=== PATIENT | male | born 1975 | race African-American/Black ===

== ENCOUNTER 2021-10-22 00:06 | Emergency (ER) | payer MEDICAID ==
[~2021-10-22] VITALS: Ht 185.4 cm; Wt 98.0 kg
[2021-10-22] MEDS ORDERED: ASPIRIN 81MG TABLET PO ONE (05:45)
[2021-10-22] MEDS ORDERED: IBUPROFEN 400MG TABLET PO ONE (05:45)
[2021-10-22 05:48] LABS: BASOPHILS % 1.2 % (0.0-2.0); EOSINOPHILS % 3.2 % (0.0-5.0); HEMATOCRIT. 44.2 % (42.0-52.0); HEMOGLOBIN. 14.7 g/dL (14.0-18.0); LYMPHOCYTES % 38.4 % (20.0-50.0); MEAN CORPUSCULAR HEMOGLOBIN 30.5 pg (28.0-32.0); MEAN PLATELET VOLUME 7.2 fl (7.4-10.4); MONOCYTES % 5.6 % (2.0-8.0); NEUTROPHILS % 51.6 % (40.0-76.0); PLATELET 252 x1000/uL (130-400); RED BLOOD CELL COUNT 4.81 mill/uL (4.7-6.1); RED CELL DISTRIBUTION WIDTH 13.4 % (11.6-14.6)
[2021-10-22 05:55] LABS: CHLORIDE 107 mEq/L (98-107)
[2021-10-22 06:08] VITALS: BP 147/71
== END 2021-10-22 07:31 | disposition home or self-care (01) ==
LOC: ER 00:06
DX: F20.9 Schizophrenia, unspecified (principal); R07.89 Other chest pain
CPT/HCPCS: 36415; 71045; 80053; 83880; 84484; 85025; 93005; 99285